=== PATIENT | male | born 1945 | race Caucasian/White ===

== ENCOUNTER → 2023-07-28 14:09 | Outpatient (REF) | payer MEDICARE, OTHER, SELFPAY | LOC: HWRAD 14:09 | PROVIDERS: ATTENDING PHYSICIAN Family Medicine | DX: R06.2 Wheezing (principal) | CPT/HCPCS: 71046 ==

== ENCOUNTER → 2023-08-11 07:21 | Outpatient (REF) | payer MEDICARE, OTHER, SELFPAY | LOC: HWRAD 07:21 | PROVIDERS: ATTENDING PHYSICIAN Family Medicine | DX: M79.89 Other specified soft tissue disorders (principal) | CPT/HCPCS: 76536 ==

== ENCOUNTER → 2023-09-22 06:36 | Outpatient (REF) | payer MEDICARE, OTHER, SELFPAY | LOC: RCS 06:36 | PROVIDERS: ATTENDING PHYSICIAN Internal Medicine Cardiovascular Disease; FAMILY PHYSICIAN Family Medicine | DX: R06.02 Shortness of breath (principal); I10 Essential (primary) hypertension | CPT/HCPCS: 78452; 93017; A9500 ==

== ENCOUNTER → 2023-10-09 | Outpatient (REF) | payer MEDICARE, OTHER, SELFPAY | LOC: DHSLP | PROVIDERS: ATTENDING PHYSICIAN Internal Medicine Critical Care Medicine; FAMILY PHYSICIAN Family Medicine | DX: G47.30 Sleep apnea, unspecified (principal); G47.00 Insomnia, unspecified; R06.83 Snoring | CPT/HCPCS: 95810 ==

== ENCOUNTER 2023-10-12 04:49 | Inpatient (IN) | payer MEDICARE, OTHER, SELFPAY ==
[2023-10-12] VITALS (17 sets, daily range): BP systolic 125–166; BP diastolic 72–108; PULSE 78; BMI 34.7; BMI 34.3
--- NOTE | 2023-10-12 01:01 | ED.GENMED ---
History of Present Illness
General
Chief Complaint: Change in Mental Status
Time Seen by Provider: 10/12/23 00:50
Travel History
Have you had any contact with someone who has COVID-19?: No
Do you have any symptoms of coronavirus? Fever > 100 degrees, chills, cough, shortness of breath, sore throat, loss of taste or smell, muscle aches, or headache?: No
History of Present Illness
History of Present Illness:
77yoM hx atrial fibrillation, HTN ,HLD, bilateral cataracts presenting with altered mental status. Family at bedside states patient had a sleep study done last night where patient did not sleep at all. states she picked patient up around 6am,
and he was asleep in bed by 7am. states patient slept for 2 hours and then ate breakfast as normal around 9am. states patient then slept on and off for the rest of the day. and daughter noticed patient was more confused than normal
such as attempted to sit on 's lap while getting into the car. notes patient has been coughing for the past days. Patient reports headache and right eye pain for the past 1 week, which daughter and states patient has not complained
about. Family states patient is currently being treated for sinus infection with doxycycline for the past 8-9 days. Otherwise patient denies any numbness, weakness, tingling, chest pain, shortness of breath, abdominal pain, or urinary symptoms.
Past History
Past History
ED Past Medical History: HTN and Hypercholesterolemia
ED Past Surgical History: Other (Hernia repair)
Social History
Tobacco: Non-smoker
Alcohol: None
Drug: None
Personal:
Living: with family
Employment: Employed
Family History
Family History: Hypertension
Phy Exam
Physical Exam
Physical Exam:
General: Alert, no acute distress
Head: NCAT
Eyes: clear conjunctiva. PERRLA. Difficulty following instructions to assess extraoccular movements
Neck: supple
Cardiac: regular rate and rhythm, no murmur
Lungs: clear to auscultation bilaterally. No wheezes, rales, or rhonchi. Speaking full unlabored sentences. No respiratory distress.
Abdomen: soft, nondistended nontender. No rebound or guarding.
MSK: no lower extremity edema bilaterally. No deformity
Skin: dry. Warm to touch
Neuro: Alert and oriented x3. CNII-XII intact with no focal deficits. 5/5 strength bilateral upper and lower extremities
Course
Orders/Labs/Results
Orders:
Orders
10/12/23 01:00
CT Head W/o Iv Contrast Urgent
Comment:
Reason For Exam: ams, headache
10/12/23 01:01
UA Reflex to Culture [Urinalysis Reflex To Culture] Urgent
CXR2 [CR Chest - 2 Views ] Urgent
Comment:
Reason For Exam: cough
10/12/23 01:10
CBC/With Diff [Complete Blood Count/With Diff] Urgent
CMP [Comprehensive Metabolic Panel] Urgent
Lactic Acid Urgent
Blood Culture Urgent
JENNIFER Source: Blood/Venous
Specimen Description:
10/12/23 01:24
0.9% Sodium Chloride 1000 ml [Nss] 1,000 ml IV BOLUS
10/12/23 02:10
Blood Culture Urgent
JENNIFER Source: Blood/Venous
Specimen Description:
Date Specimen was Collected: 10/12/23
Time Specimen was Collected: 02:09
10/12/23 02:28
Acetaminophen [Tylenol] 1,000 mg PO NOW STA
Ondansetron Injectable [Zofran] 4 mg IV NOW STA
Piperacillin/Tazo 4.5 Gram [Zosyn] 4.5 gram in 100 ml IV NOW
Vancomycin [Vancocin] 1,500 mg 0.9% Sodium Chloride [Nss] 20 ml 0.9% Sodium Chloride 250 ml [Nss] 250 ml IV NOW
Abnormal Lab Results
10/12/23
01:10
RDW 15.1 H %
(11.5-14.5)
Absolute Monos (auto) 0.8 H 10^3/uL
(0.1-0.6)
Lymphocytes % 17.8 L %
(20.5-51.1)
BUN 21 H mg/dl
(9-20)
Glucose 113 H mg/dl
(70-99)
10/12/23 01:10
10/12/23 01:10
Vital Signs
Initial and Last Documented VS:
Initial Vital Signs
Temp Pulse Resp BP Pulse Ox
99.2 F 88 28 158/108 97
10/12/23 00:29 10/12/23 00:29 10/12/23 00:29 10/12/23 00:29 10/12/23 00:29
Last Documented Vital Signs
Temp Pulse Resp BP Pulse Ox
100.1 F 88 18 158/80 96
10/12/23 01:08 10/12/23 02:43 10/12/23 02:43 10/12/23 02:43 10/12/23 02:43
MDM/Problems Addressed
MDM/Problems Addressed:
Patient presents to the Emergency Department with ___altered mental status
Number and Complexity of Problems Addressed at the Encounter
� Chronic conditions affecting care:
� Acute Exacerbation and/or Progression of Chronic Illness:
� Differential Diagnosis includes: sepsis, pneumonia, UTI, hypoglycemia, intracranial hemorrhage
Amount and/or Complexity of Data to be Reviewed and Analyzed
� I performed an independent evaluation of and my interpretation is:
EKG:
CT:
Xrays: CXR clear with no focal infiltrate or consolidation
Laboratory Studies: WBC, electrolytes, lactic acid within normal limits
Other:
� Review of other/old records reveals:
� Clinical information was obtained by an independent historian:
� Prescriptions/Medications Considered but not given:
� Further testing considered but not performed:
Risk of Complications and/or Morbidity or Mortality of Patient Management
� Social Determinants of health affecting care:
� Discussion with other providers (PCP, Hospitalists, Consultants, etc):
� Escalation of care including admission/observation vs risk of discharge considered: 77yoM hx atrial fibrillation, HTN, HLD presenting with altered mental status starting today. Patient has been on doxycycline for the past 8-9 days for a sinus
infection. Patient reports headache starting 1 week ago. Patient alert and oriented x3, but has difficulty following basic commands which is new. Low grade fever 100.1 rectally. Concern for infection. Due to patient being on doxycycline, ordered
vancomycin and zosyn for broad spectrum antibiotics. WBC, CMP, lactic acid within normal limits. CXR clear with no focal infiltrate or consolidation. CT head shows no intracranial hemorrhage, herniation or hydrocephalus. Chronic microangiopathic
changes, including periventricular and deep white matter hypoattenuation. No CT evidence of superimposed acute large vascular territory ischemia, although MRI is most sensitive for this diagnosis. No acute calvarial fracture. The paranasal sinuses
and mastoid air cells are clear where seen. As read by radiology. Discussed with hospitalist for admission.
*Critical Care Note
Total Time (30-74mins, 75-104mins- exclusive of procedures): Not Applicable
ED Attending Note
-
Portions of this chart may have been created with voice recognition software.� Occasional wrong word or��sound alike� substitutions may have occurred due to the inherent limitations of voice recognition software.
Discharge Plan
Departure
Patient Disposition: Admit
Date of Disposition: 10/12/23
Time of Disposition: 02:50
Presentation/result/management discussed w/ accepting MD/DO: Hospitalist
Discharge Problem:
Altered mental status
Prescriptions:
No Action
simvastatin 10 MG tablet
5 mg PO QPM
aspirin 81 MG tablet,delayed release (DR/EC)
81 mg PO DAILY
fenofibrate nanocrystallized [Tricor] 145 MG tablet
1 tab PO DAILY
CO Q-10
1 tab PO DAILY
Lisinopril/Hydrochlorothiazide
1 tab PO BID
Patient Comments:
pt states dose is lisinopril 20/10
Niacin Flush Free 500 mg Cap
1 tab PO DAILY
amoxicillin 500 MG capsule
500 mg PO TID Qty: 21 0RF
Referrals:
Gael Ochoa, DO [Family Provider] -
Interventions
Interventions:
*Risk Screen - Suicide Last Done: 10/12/23 00:29
*General Assessment Last Done: 10/12/23 00:29
*Neglect/Abuse Screening Last Done: 10/12/23 00:29
ED- Fall Risk Assessment Last Done: 10/12/23 01:14
ED- Pulmonary Assessment Last Done: 10/12/23 01:14
ED- Neurological Assessment Last Done: 10/12/23 01:14
ED- Cardiac Assessment Last Done: 10/12/23 01:14
Discharge Date and Time
Print Language: SYRIAN
[2023-10-12 01:21] LABS: % Basophils 0.7 % (0-2); % Eosinophils 2.3 % (0-6); % Immature Granulocytes 0.5 % (0-0.5); % Lymphocytes 17.8 % (20.5-51.1); % Monocytes 8.7 % (1.7-9.3); Absolute Basophils 0.1 10^3/uL (0-0.2); Absolute Eosinophils 0.2 10^3/uL (0-0.7); Absolute Lymphocytes 1.5 10^3/uL (1.2-3.4); Absolute Monocytes 0.8 10^3/uL (0.1-0.6); Hematocrit 47.4 % (39.0-52.0); Hemoglobin 16.6 g/dL (13.0-18.0); Mean Corpuscular Hgb 29.2 pg (27.0-31.0); Mean Corpuscular Volume 83.5 fL (80.0-94.0); Mean Platelet Volume 8.7 fL (7.4-10.4); Nucleated Red Blood Cells % 0 % (-); Platelet Count 153 10^3/uL (130-400); Red Blood Cell Count 5.68 10^6/uL (4.70-6.10); Red Cell Dist. Width 15.1 % (11.5-14.5); White Blood Cell Count 8.6 10^3/uL (4.8-10.8)
[2023-10-12 01:35] LABS: ALT (SGPT) 35 U/L (0-50); AST (SGOT) 27 U/L (17-59); Albumin 4.5 g/dl (3.5-5.0); Alkaline Phosphatase 76 U/L (38-126); Blood Urea Nitrogen 21 mg/dl (9-20); Calcium 9.8 mg/dl (8.4-10.2); Carbon Dioxide 28 mmol/L (22-30); Chloride 102 mmol/L (98-107); Estimated Creatinine Clearance 60 ml/min; Glucose 113 mg/dl (70-99); Sodium 139 mmol/L (135-145); Total Bilirubin 1.1 mg/dl (0.2-1.3); Total Protein 7.1 g/dl (6.3-8.2); eGFR > 60.00
[2023-10-12 01:40] LABS: Lactic Acid 1.4 mmol/L (0.7-2.0)
[2023-10-12] MEDS: NSS 1000 IV ×3 (02:08→15:23)
[2023-10-12] MEDS: ZOFRAN 4 MG IV (02:35)
[2023-10-12] MEDS: TYLENOL 1000 MG PO (02:35)
[2023-10-12] MEDS: ZOSYN 100 IV (02:51)
--- NOTE | 2023-10-12 04:19 | HPS.HSE ---
Family Physician
-
Family Physician: Gael Ochoa
Chief Complaint
-
Confusion / Change in Mental Status
History of Present Illness
Patient is a 77y M with PMH significant for hypertension and dyslipidemia who presents to ED for evaluation of confusion / disorientation. History obtained from patient and family at the bedside. Patient was noted to be confused / disoriented
at home today around 4 PM. He had difficulty following directions from family. Patient reports some sort of episode of confusion while he was showering, but family was not previously aware of this. He began to complain of headache, blurry vision,
shakes and chills and was brought to the ED for further evaluation.
In the ED, his initial rectal temp was 100.1.
Patient denies any focal complaints such as cough, dyspnea, abdominal pain, N/V/D or urinary complaints.
He has history of chronic 'sinus disease' which manifests as post-nasal drip. He has been on abx off and on many times for this - with temporary improvement in his symptoms.
He is currently on day #9/10 of doxycycline for this issue. This is a new abx for him.
No other new medications.
Patient had an overnight sleep study on Friday evening and slept very poorly that night. He slept for much of the day on Friday but then seemed fairly normal and Friday.
His gave him 1/2 of a lorazepam this evening in the hopes it would help him get some rest. He takes this occasionally for sleep - but not every day.
He was exhibiting confusion / disorientation prior to receiving this medicine.
Medical History
Past Medical History
Past Medical History: Reports Other
Additional Past Medical History:
Paroxysmal Atrial Fibrillation
CKD III
Hypertension
Prostate Cancer s/p XRT
LATANYA on CPAP
Obesity
Gout
Psoriasis
Past Surgical History: Reports Other
Additional Past Surgical History:
Umbilical Herniorrhaphy
Cataracts
T&A
Social History
Tobacco: Non-smoker
Alcohol: None
Drug: None
Personal:
Living: With Family
Family History
Family History: Not pertinent
Allergies / Home Medications
Allergies reflects when Allergies were last updated in [facility].
Home Medications with original date entered in [facility]
Allergy/Medication List:
Allergies
Allergy/AdvReac Type Severity Reaction Status Date / Time
Penicillins Allergy Unknown Verified 10/12/23 03:46
Sulfa (Sulfonamide Allergy Unknown Verified 10/12/23 03:46
Antibiotics)
Hay Fever Allergy sneezing,itchy Uncoded 10/12/23 03:46
eyes
Home Medications
aspirin 81 mg tablet,delayed release 81 mg PO DAILY 03/23/12
CoQ-10 200 mg PO DAILY 10/12/23
[place] 3 1,000 mg PO QID 10/12/23
Symbicort 1 dose PO DAILY 10/12/23
Zetia 10 mg PO DAILY 10/12/23
febuxostat 40 mg tablet 40 mg PO DAILY 10/12/23
hydrochlorothiazide 12.5 mg tablet 12.5 mg PO DAILY 10/12/23
lorazepam 1 mg PO DAILY 10/12/23
losartan 50 mg PO DAILY 10/12/23
pravastatin 20 mg PO DAILY 10/12/23
Review of Systems
-
History Source: Patient and Family
A 12 point ROS was completed and negative except as noted: Yes
Constitutional: Reports Fever, Fatigue and Chills
EENT: Denies Sore Throat
Respiratory: Denies Cough or Trouble Breathing
Cardiac: Denies Chest Pain or Palpitations
Abdomen/GI: Denies Abdominal Pain, Nausea, Vomiting or Diarrhea
: Denies Dysuria, Frequency or Flank Pain
Musculoskeletal: Denies Joint Pain or Edema
Neurological: Denies Dizzy or Headache
Psych: Reports Other (Confusion); Denies Depression or Anxiety
Physical Exam
Vital Signs
Vital Signs
Temp Pulse Resp BP Pulse Ox
100.1 F 88 18 158/80 96
10/12/23 01:08 10/12/23 02:43 10/12/23 02:43 10/12/23 02:43 10/12/23 02:43
Physical Exam
General: Other (77y M in no acute distress.)
HEENT: Moist mucous membranes and PERRLA
Respiratory: Clear; No Wheezes, Rales or Rhonchi
Cardiac: S1/S2, Regular Rhythm and Murmur (II/ MALLORIE)
GI: Soft, Non Tender, Non Distended and Normal Bowel Sounds
Musculoskeletal: No Clubbing, No Cyanosis and No Edema
Neuro: Awake, Alert, Oriented and Nonfocal/grossly intact
Psych: Confused; No Anxious or Depressed
Laboratory Results
-
10/12/23 01:10
10/12/23 01:10
Laboratory Results
Lactic Acid 1.4 mmol/L (0.7-2.0) 10/12/23 01:10
Total Bilirubin 1.1 mg/dl (0.2-1.3) 10/12/23 01:10
AST 27 U/L (17-59) 10/12/23 01:10
ALT 35 U/L (0-50) 10/12/23 01:10
Alkaline Phosphatase 76 U/L (38-126) 10/12/23 01:10
Impression/Plan
-
A/P: Patient is a 77y M with PMH significant for A-Fib, HTN and LATANYA who presents to ED for evaluation of confusion / disorientation.
Confusion / Disorientation
- Admit for further evaluation and treatment.
- No evident etiology for his confusion - though infection and acute TME seems most likley.
- Other possibilities include CVA (A-Fib not on OAC), med effect (doxycycline), etc.
- Follow for any new / worsening symptoms.
- CT head in the ED with no acute abnormalities.
- Check MR brain in the AM.
Fever
- Temp in the ED to 100.5 after Tylenol. Rigors / chills at home.
- No focal symptoms and work-up thus far in the ED is unremarkable.
- Urine is pending.
- Received initial doses of Vanco / Zosyn.
- Reviewed PCN allergy with patient / - apparently has taken amoxicillin on multiple prior occasions with no issues.
- PCN 'allergy' was from childhood records - no adverse effects in his adult life.
- Continue IV abx with ceftriaxone for now pending culture data, focal symptoms, etc.
- Supportive care with antipyretics, IVFs, etc.
- Follow for clinical improvement.
- Will stop doxycycline. Note that CT scan shows no evidence of significant sinus disease.
Paroxysmal Atrial Fibrillation
- Stable. Patient on no medications for rate or rhythm control.
- Not on OAC for stroke risk reduction.
- Monitor on tele for any evidence of A-Fib.
- Stroke eval as noted above.
- Adjust meds if needed.
Benign Hypertension
- Stable. Continue usual meds with holding parameters.
CKD III
- Stable. Renal function at / near known baseline.
- Follow for any changes.
LATANYA on CPAP
- Stable. Continue usual CPAP.
Cognitive Impairment
- Patient was noted at recent PCP visit to have mild degree of cognitive impairment.
- Current symptoms may reflect decompensation in this due to infection / acute illness.
- Follow for improvement.
DVT Prophylaxis: SCDs
Code Status: Full
[2023-10-12 04:40] LABS: Urine Albumin Negative (Neg - Trace); Urine Bilirubin Negative (Negative); Urine Character Clear (Clear); Urine Color Yellow; Urine Glucose Negative (Negative); Urine Ketone Negative (Negative); Urine Leukocyte Negative (Negative); Urine Nitrite Negative (Negative); Urine Occult Blood Negative (Negative); Urine Specific Gravity 1.015 (<1.030); Urine Urobilinogen Negative (Neg - 1+); Urine pH 6.5 (5.0-9.0)
[2023-10-12] MEDS: VANCOCIN 300 MG IV (04:54)
[2023-10-12] MEDS: VANCOCIN 300 ML IV (04:54)
[2023-10-12 07:34] LABS: TSH Reflex To Free T4 0.93 uIU/ml (0.47-4.68)
[2023-10-12 08:10] LABS: Folate 16.2 ng/ml (2.76-20); Vitamin B12 168 pg/ml (239-931)
--- NOTE | 2023-10-12 08:12 | W.PN.HOSP.TC ---
Today's Communication/Plan
-
MRI
continue Ceftriaxone
Neuro consult
follow labs
PT/OT
Assessment / Plan
Assessment / Plan
A/P: Patient is a 77y M with PMH significant for A-Fib, HTN and LATANYA who presents to ED for evaluation of confusion / disorientation.
Confusion / Disorientation
- Admit for further evaluation and treatment.
- No evident etiology for his confusion - though infection and acute TME seems most likely.
- Other possibilities include CVA (A-Fib not on OAC), med effect (doxycycline), etc.
- Follow for any new / worsening symptoms.
- CT head in the ED with no focal abnormalities.
my read: mild atrophic changes
- Check MR brain in the AM.
Fever
- Temp in the ED to 100.5 after Tylenol. Rigors / chills at home.
- No focal symptoms and work-up thus far in the ED is unremarkable.
- Urine normal
- Received initial doses of Vanco / Zosyn.
- Reviewed PCN allergy with patient / - apparently has taken amoxicillin on multiple prior occasions with no issues.
- PCN 'allergy' was from childhood records - no adverse effects in his adult life.
- Continue IV abx with ceftriaxone for now pending culture data, focal symptoms, etc.
- Supportive care with antipyretics, IVFs, etc.
- Follow for clinical improvement.
- Will stop doxycycline. Note that CT scan shows no evidence of significant sinus disease.
CXR - [facility] (my read)
Paroxysmal Atrial Fibrillation
- Stable. Patient on no medications for rate or rhythm control.
- Not on OAC for stroke risk reduction.
- Monitor on tele for any evidence of A-Fib.
- Stroke eval as noted above.
- Adjust meds if needed.
Benign Hypertension
- Stable. Continue usual meds with holding parameters.
CKD III
- Stable. Renal function at / near known baseline.
- Follow for any changes.
LATANYA on CPAP
- Stable. Continue usual CPAP.
Cognitive Impairment
- Patient was noted at recent PCP visit to have mild degree of cognitive impairment.
- Current symptoms may reflect decompensation in this due to infection / acute illness.
- Follow for improvement.
DVT Prophylaxis: SCDs
Code Status: Full
Anticipated Discharge: > 48 hours
Subjective/Interval History
-
Date of Service: October 12, 2023
Awake, alert, cognitive fxn obviously diminished
Objective Data
-
Labs:
Laboratory Results
10/12/23
01:10
WBC 8.6
Hgb 16.6
Hct 47.4
Plt Count 153
Sodium 139
Potassium 4.0
Chloride 102
Carbon Dioxide 28
BUN 21 H
Creatinine 1.2
Glucose 113 H
Calcium 9.8
Total Bilirubin 1.1
AST 27
ALT 35
Alkaline Phosphatase 76
Vital Signs:
Vital Signs
Temp Pulse Resp BP Pulse Ox
100.5 F H 70 20 144/86 94
10/12/23 04:59 10/12/23 06:30 10/12/23 04:59 10/12/23 04:59 10/12/23 04:59
I&O
10/11/23 10/12/23 10/13/23
06:59 06:59 06:59
Intake Total 1440 / 1440
Output Total 400 / 400
Balance 1040 / 1040
Review of Systems
-
History Source: Patient and Coordinated Provider
Constitutional: Reports Fever (Temp 100.5)
EENT: Reports No Symptoms Reported
Respiratory: Reports No Symptoms; Denies Cough, Hemoptysis or Trouble Breathing
Cardiac: Reports No Symptoms; Denies Chest Pain
Abdomen/GI: Reports No Symptoms
Genitourinary: Reports No Symptoms; Denies Dysuria or Frequency
Musculoskeletal: Reports No Symptoms
Neuro: Denies Dizzy, Weakness or Numbness
Physical Exam
-
General: Well Developed, Well Nourished, No Apparent Distress and Obese; Negative Respiratory Distress
HEENT: Normocephalic, Atraumatic, Moist Mucous Membranes and Neck Non Tender (no nuchal rigidity)
Respiratory: Clear to Auscultation; Negative Wheezes, Rales or Rhonchi
Cardiac: Regular Rhythm and S1/S2
GI: Nontender and Nondistended
Musculoskeletal: No Clubbing, No Cyanosis and No Edema
Neuro: Awake, Alert and AO x 3 (able to tell me type of work he did, where was located, unable to name president, obvious impaired cognition)
Psych: Calm; Negative Agitated
[2023-10-12] MEDS: ASPIR LOW (ENTERIC COATED) 81 MG PO (08:27)
[2023-10-12] MEDS: PRAVACHOL 20 MG PO (08:28)
[2023-10-12] MEDS: COZAAR 50 MG PO (08:30)
[2023-10-12] MEDS: ULORIC 40 MG PO (08:30)
[2023-10-12] MEDS: ZETIA 10 MG PO (08:31)
[2023-10-12] MEDS: ORETIC 12.5 MG PO (08:31)
[2023-10-12] MEDS: ROCEPHIN 1000 MG IV (08:33)
[2023-10-12] MEDS: STERILE WATER FOR INJECTION 10 ML IV (08:33)
--- NOTE | 2023-10-12 09:27 | CON.NEURO ---
Neuro Assessment/Plan
Assessment
IMPRESSIONS/RECOMMENDATIONS:
Abrupt change in mental status in a patient with a prior diagnosis of mild cognitive impairment and recent polysomnography as well as recent treatment for 'sinus infection.'
Differential diagnosis includes toxic metabolic encephalopathy as well as stroke due to the patient's prior history of atrial fibrillation
Plan
Follow MRI of brain results
check blood work for metabolic challenges
outpatient psychological evaluation for anxiety
start B12 1000 mcg daily
continue CPAP
consider additional neurovascular imaging based on MRI of brain results
Will continue to follow as outpatient. Thank you.
Consultation
Order
Date of Consultation: 10/12/23
Requesting Provider: Hospitalist
Reason for Consult: Change in mental status
Subjective/Objective
Subjective Data
Date of Service: October 12, 2023
Adapted from my outpatient note 09/2022:
Memory Loss:�
������ History from patient and significant other ()
�������Since last visit:
�������less anxiety than previously
�������no change to memory
�������stopped Trazodone
�������underwent NeuroTrax testing and blood work
�������Prior evaluation: presentation to PCP
�������Previous testing: blood work, CT head, NeuroTrax testing (08/2020, 105%)
�������Prior medication(s): none
�������Side-effects with medications: N/A
�������Previous treatment(s): none
�������Frequency: daily
�������Intensity: N/A
�������Duration: since 09/2018
�������Duration of symptom: intermittent
�������Etiology: unclear
�������Associated symptom(s): short-term memory, name recall
�������Improving factors: stopping Trazodone
�������Worsening factors: unclear to patient
�������Unchanged by factors: unclear to patient
�������Severity: significant
�������-------
�������Began (prior to initial evaluation in this office):
�������Difficulty with short-term memory 09/2018, no difficulty with long-term memory
�������had an episode of severe headache
�������anxiety started 2019, taking Lorazepam daily.
Excessive awakenings:�
������ Starting 2014
�������Awakenings from sleep: once per night
�������Able to return to sleep immediately
�������Taking OTC med for sleep 3x/week
�������BT: (variable) 23:00
�������WT: 04:00-06:00
�������Fall asleep: 4-5x/ week
�������After awakening, uses iPad for 30 minutes then returns to sleep 3x/week
�������OTC meds used to treat, also Suvorexant
�������No prior testing of this issue
�������prior snoring according to oneal.
Patient is a limited history provider. History mostly from patient's and medical records with assistance from medical claims representative
Patient presented to this hospital's emergency department with a decline in mental status. The patient was described as undergoing a diagnostic polysomnogram which caused sleep deprivation. The patient then performed unusual activities such as
attempting to sit in his 's lap while getting into the car. Disorientation was specifically noted at approximately 1600 on October 11, 2023.
Of note is that the patient has been described as having recurrent headaches approximately 8 days prior to presentation to this hospital's emergency department.
Objective Data
Vital Signs
Temp Pulse Resp BP Pulse Ox
37.1 C 87 18 139/79 94
10/12/23 08:26 10/12/23 08:30 10/12/23 08:26 10/12/23 08:30 10/12/23 08:26
Lab Results
10/12/23 01:10
10/12/23 01:10
Sodium 139 mmol/L (135-145) 10/12/23 01:10
Potassium 4.0 mmol/L (3.5-5.1) 10/12/23 01:10
BUN 21 mg/dl (9-20) H 10/12/23 01:10
Glucose 113 mg/dl (70-99) H 10/12/23 01:10
Calcium 9.8 mg/dl (8.4-10.2) 10/12/23 01:10
Vitamin B12 168 pg/ml (239-931) L 10/12/23 06:37
Patient Allergies
Sulfa (Sulfonamide Antibiotics) Allergy (Verified 10/12/23 03:46)
Unknown
Hay Fever Allergy (Uncoded 10/12/23 03:46)
sneezing,itchy eyes
Review of Systems
-
History Source: Patient and Family
All other systems: Reviewed and negative
EENT: Negative Decreased Vision or Swallowing Difficulty
Respiratory: Negative Trouble Breathing
Cardiac: Negative Chest Pain
Abdomen/GI: Negative Incontinence of Stool
Genitourinary: Negative Incontinence
Musculoskeletal: Negative Back Pain or Neck Pain
Neuro: Negative Dizzy or Headache
Physical Exam
-
General: No Apparent Distress and Appears Stated Age
Eyes: OU Absent Papilledema, Round OU, [place] Conjunctivae and No Ptosis
HEENT: Anicteric and Moist Mucous Membranes
Neck: Full Range of Motion
Respiratory: No Dyspnea
Cardiac: No JVD
GI: Non-distended and Other (obese)
Skin: Unremarkable
Extremities: No Clubbing, No Cyanosis and No Edema
Psych: Negative Intact Judgement/Insight
Extended Neurological Exam
Mood & Affect: Anxious
Attention Span & Concentration: Awake, Alert, Interactive and Mild Difficulty with 2 Step Request
Memory: Able to Recall (location, )
Tremor: Hand Tremor Absent and Head Tremor Absent
Involuntary Movement: None
Speech: Quality Unremarkable and Quantity Unremarkable
Cranial Nerve II: Left Eye: Pupillary Reactivity Unremarkable, Pupillary Size Unremarkable and Visual O[place]peza Intact
Cranial Nerve II: Right Eye: Pupillary Reactivity Unremarkable, Pupillary Size Unremarkable and Visual [place] Intact
Cranial Nerves III, IV, : Extraocular Movement: Extraocular Movement Full in all Directions
Cranial Nerve VII: Facial Symmetry: Normal Facial Symmetry
Cranial Nerve VIII: Hearing: Unremarkable Hearing to Normal Conversational Volume
Cranial Nerves IX, X: Palate Movement: Palate Elevation Symmetric
Cranial Nerve XI: Shoulder Shrug: Unremarkable
Cranial Nerve XII: Tongue Protusion: Midline
Muscle Strength, Overall: Full Throughout
Muscle Bulk & Tone: Bulk Unremarkable and Tone Unremarkable
Pronator Drift: No Drift in Upper Extremities
Deep Tendon Reflexes: Unremarkable Throughout
Touch Sensation: Unremarkable
Coordination: [id number] Testing Unremarkable
Babinski Sign: Absent Bilaterally
Data Reviewed
-
CT Head: Report Reviewed
Labs: Report Reviewed
Reviewed with: Physician, Patient and Family
Old Records: Summarized
Medications
-
Active Medications
Generic Name Dose Route Start Last Admin
Trade Name Freq PRN Reason Stop Dose Admin
Acetaminophen 650 mg 10/12/23 06:22
Acetaminophen 325 Mg Tablet PO 11/09/23 06:21
Q4HPRN PRN
Mild Pain / Temp > 101
Albuterol Sulfate 2.5 mg 10/12/23 06:22
Albuterol Nebs 2.5 Mg/3 Ml Ampul INH
R Q4HPRN PRN
SOB
Protocol
Aspirin 81 mg 10/12/23 08:00 10/12/23 08:27
Aspirin 81 Mg (Enteric Coated) Tablet PO 11/09/23 07:59 81 mg
DAILY JOSEFINA Administration
Ceftriaxone Sodium 1,000 mg 10/12/23 08:00 10/12/23 08:33
Ceftriaxone 1000 Mg / 10 Ml Vial IV 1,000 mg
Q24H JOSEFINA Administration
Ezetimibe 10 mg 10/12/23 08:00 10/12/23 08:31
Ezetimibe (Zetia) 10 Mg Tablet PO 11/09/23 07:59 10 mg
DAILY JOSEFINA Administration
Enoxaparin Sodium 40 mg 10/12/23 18:00
Enoxaparin Sodium 40 Mg/0.4 Ml Syringe SC 11/09/23 17:59
QPM JOSEFINA
Febuxostat 40 mg 10/12/23 08:00 10/12/23 08:30
Febuxostat (Non-Form) 40 Mg Tablet PO 11/09/23 07:59 40 mg
DAILY JOSEFINA Administration
Hydrochlorothiazide 12.5 mg 10/12/23 08:00 10/12/23 08:31
Hydrochlorothiazide 12.5 Mg Tablet PO 11/09/23 07:59 12.5 mg
DAILY JOSEFINA Administration
Sodium Chloride 1,000 mls @ 100 mls/hr 10/12/23 06:22 10/12/23 06:45
Nss IV 1,000 mls
.Q10H JOSEFINA Administration
Losartan Potassium 50 mg 10/12/23 08:00 10/12/23 08:30
Losartan 50 Mg Tablet PO 11/09/23 07:59 50 mg
DAILY JOSEFINA Administration
Ondansetron HCl 4 mg 10/12/23 06:22
Ondansetron 4 Mg/2 Ml Vial IV 11/09/23 06:21
Q6HPRN PRN
nausea and vomiting
Pravastatin Sodium 20 mg 10/12/23 08:00 10/12/23 08:28
Pravastatin 20 Mg Tablet PO 11/09/23 07:59 20 mg
DAILY JOSEFINA Administration
Sodium Chloride 0 flush 10/12/23 04:00
Sodium Chloride 0.9% (Flush) Syringe IV 11/09/23 03:59
PER PROTOCOL JOSEFINA
Sterile Water 10 ml 10/12/23 08:00 10/12/23 08:33
Sterile Water For Injection 10 Ml Vial IV 11/09/23 07:59 10 ml
DAILY JOSEFINA Administration
Home Medications
�Medication �Instructions �Recorded
aspirin 81 mg tablet,delayed 81 mg PO DAILY 03/23/12
release
CoQ-10 200 mg PO DAILY 10/12/23
[place] 3 1,000 mg PO QID 10/12/23
Symbicort 1 dose PO DAILY 10/12/23
Zetia 10 mg PO DAILY 10/12/23
febuxostat 40 mg tablet 40 mg PO DAILY 10/12/23
hydrochlorothiazide 12.5 mg tablet 12.5 mg PO DAILY 10/12/23
lorazepam 1 mg PO DAILY 10/12/23
losartan 50 mg PO DAILY 10/12/23
pravastatin 20 mg PO DAILY 10/12/23
Past History
Past History
ED Past Medical History: Arrthythmia (Atrial fibrillation), Cancer (Prostate), HTN, Hypercholesterolemia and Other (Mild cognitive impairment, PHU positive, high triglycerides, low vitamin D, fatty liver, erectile dysfunction, gout, low
testosterone, sleep apnea); Negative Renal failure (CKD stage III)
ED Past Surgical History: Other (Hernia repair, bilateral cataract extractions)
Social History
Tobacco: Non-smoker
Alcohol: None
Drug: None
Personal:
Living: with family
Employment: Employed
Family History
Family History: Hypertension
[2023-10-12 09:45] LABS: COVID-19 Antigen Negative (Negative)
[2023-10-12] MEDS: VITAMIN B-12 1000 MCG PO (12:41)
[2023-10-12] MEDS: ATIVAN 1 MG PO (13:39)
[2023-10-12] MEDS: LOVENOX 40 MG SC (17:25)
[2023-10-13] MEDS: NSS 1000 IV (02:17)
[2023-10-13 03:10] VITALS: BP 163/82
[2023-10-13 06:00] VITALS: BMI 34.2
[2023-10-13 06:09] LABS: % Basophils 0.8 % (0-2); % Eosinophils 2.1 % (0-6); % Immature Granulocytes 0.3 % (0-0.5); % Lymphocytes 18.7 % (20.5-51.1); % Monocytes 9.5 % (1.7-9.3); % Neutrophils 68.6 % (42.2-75.2); Absolute Basophils 0.1 10^3/uL (0-0.2); Absolute Eosinophils 0.2 10^3/uL (0-0.7); Absolute Lymphocytes 1.3 10^3/uL (1.2-3.4); Absolute Monocytes 0.7 10^3/uL (0.1-0.6); Absolute Neutrophils 4.9 10^3/uL (1.4-6.5); Hematocrit 47.4 % (39.0-52.0); Mean Corp Hgb Conc. 33.8 g/dL (33.0-37.0); Mean Corpuscular Hgb 29.2 pg (27.0-31.0); Mean Corpuscular Volume 86.5 fL (80.0-94.0); Mean Platelet Volume 8.8 fL (7.4-10.4); Nucleated Red Blood Cells % 0 % (-); Platelet Count 142 10^3/uL (130-400); Red Blood Cell Count 5.48 10^6/uL (4.70-6.10); Red Cell Dist. Width 14.7 % (11.5-14.5); White Blood Cell Count 7.2 10^3/uL (4.8-10.8)
[2023-10-13 06:21] LABS: ALT (SGPT) 29 U/L (0-50); AST (SGOT) 27 U/L (17-59); Albumin 3.9 g/dl (3.5-5.0); Alkaline Phosphatase 60 U/L (38-126); Blood Urea Nitrogen 15 mg/dl (9-20); Calcium 9.4 mg/dl (8.4-10.2); Carbon Dioxide 26 mmol/L (22-30); Chloride 105 mmol/L (98-107); Direct Bilirubin 0.3 mg/dl (0.0-0.4); Estimated Creatinine Clearance 65 ml/min; Glucose 95 mg/dl (70-99); Potassium 3.8 mmol/L (3.5-5.1); Sodium 140 mmol/L (135-145); Total Bilirubin 1.2 mg/dl (0.2-1.3); Total Protein 6.4 g/dl (6.3-8.2); eGFR > 60.00
[2023-10-13 06:44] LABS: C-Reactive Protein < 5.00 mg/L (0.0-10.00)
[2023-10-13 07:38] VITALS: BP 170/89
--- NOTE | 2023-10-13 08:22 | W.PN.NEURO.1 ---
Addendum entered and electronically signed by Alvarado Peña MD 10/13/23 14:38:
I saw and evaluated the patient I reviewed the note by Gretta Nielsen agree with the findings the following comments:
77-year-old male with a past history of anxiety, sleep apnea mild cognitive impairment presenting the hospital with confusion. He did have low-grade temperature to 100.5 here.
No acute events overnight patient had been given Ativan shortly before the time of my evaluation of him. Patient had been experiencing some small degree of increased baseline level of anxiety but no recent severe stressors. No significant alcohol
or recreational drug use.
Neurologic examination shows mild amount of drowsiness attributable to lorazepam, otherwise there is no aphasia and he answers basic questions and obeys commands, no deficits of cranial nerves and motor function no hyperreflexia.
MRI brain reviewed which does not show any significant small vessel ischemic disease and no acute or chronic strokes no masses or edema.
Low vitamin B12 noted
Assessment: Best estimation is that combination of baseline mild cognitive impairment, vitamin B12 deficiency and possibly a mild viral illness contributed to increased confusion. Patient has not had any leukocytosis headache meningismus nausea or
vomiting that suggest a SOCIAL INSURANCE ANALYST infection. He has not had any history of gait issues neck pain or hyperreflexia or weakness to suggest that he has any aspect of cervical myelopathy. MRI brain does not support a vascular type mild cognitive impairment
Recommendations
-Vitamin B12 p.o. daily
-Continue his home aspirin
-Discussed consideration for the future of memory stabilizing medication such as Aricept or Namenda
-Outpatient neurology and neuropsychological evaluations
-Monitor for recurrent fever
-Do not feel he would require spinal tap
-History and lack of lesions on brain MRI I feel make EEG low yield
Original Note:
Today's Communication / Plan
-
.
Neuro Assessment/Plan
Assessment
IMPRESSIONS/RECOMMENDATIONS:
Abrupt change in mental status in a patient with a prior diagnosis of mild cognitive impairment, severe anxiety, and recent polysomnography as well as recent treatment for 'sinus infection.'
Differential diagnosis includes toxic metabolic encephalopathy of unclear etiology, vitamin B12 deficiency.
MRI brain is negative for stroke.
-MRI brain 10/13/23: No MRI evidence for acute infarct or intracranial hemorrhage. Mild white matter leukoaraiosis in the frontal and parietal lobes. Mild diffuse cerebral and cerebellar volume loss. Severe discogenic degenerative disease at C3/C4,
C4/C5, and C5/C6. Moderate-sized disc herniation at C3/C4 causing moderate spinal cord compression and central canal stenosis.
Plan
-Continue aspirin 81mg daily.
-Needs outpatient psychological evaluation prior to considering starting a memory stabilization medication.
-Start B12 1000 mcg daily. B12 level is 168.
-Continue CPAP
-Infectious workup per primary team.
-Can follow-up with Ortho as an outpatient regarding cervical spine abnormalities.
-Patient should follow-up with Neurology as an outpatient, may see the LEAD CYTOGENETIC TECHNOLOGIST or one of the physicians.
Subjective/Objective
Subjective Data
Date of Service: October 13, 2023
No acute events overnight. Patient's family reports that he seems about at his cognitive baseline today and the patient denies any headache.
Objective Data
Vital Signs
Temp Pulse Resp BP Pulse Ox
98.4 F 81 18 170/89 94
10/13/23 07:38 10/13/23 07:38 10/13/23 07:38 10/13/23 07:38 10/13/23 07:38
Lab Results
10/13/23 04:55
10/13/23 04:55
Sodium 140 mmol/L (135-145) 10/13/23 04:55
Potassium 3.8 mmol/L (3.5-5.1) 10/13/23 04:55
BUN 15 mg/dl (9-20) 10/13/23 04:55
Glucose 95 mg/dl (70-99) 10/13/23 04:55
Calcium 9.4 mg/dl (8.4-10.2) 10/13/23 04:55
Vitamin B12 168 pg/ml (239-931) L 10/12/23 06:37
Patient Allergies
Sulfa (Sulfonamide Antibiotics) Allergy (Verified 10/12/23 03:46)
Unknown
Hay Fever Allergy (Uncoded 10/12/23 03:46)
sneezing,itchy eyes
Review of Systems
-
History Source: Patient
EENT: Negative Blurry Vision, Decreased Vision or Swallowing Difficulty
Respiratory: Negative Cough or Trouble Breathing
Cardiac: Negative Chest Pain or Palpitations
Abdomen/GI: Negative Nausea
Neuro: Negative Dizzy, Headache, Weakness, Numbness, Ataxia, Tremors or Speech Problem
Physical Exam
-
General: No Apparent Distress
Eyes: No Ptosis and PERRLA
HEENT: Normocephalic and Atraumatic
Neck: Full Range of Motion
Respiratory: No Dyspnea
GI: Non-distended
Extremities: No Clubbing, No Cyanosis and No Edema
Psych: Unremarkable
Extended Neurological Exam
Mood & Affect: Mood Unremarkable and Affect Unremarkable
Attention Span & Concentration: Awake, Alert and Interactive
Memory: Unremarkable (AAOx3, poor historian)
Tremor: Hand Tremor Absent and Head Tremor Absent
Involuntary Movement: None
Speech: Quality Unremarkable, Quantity Unremarkable and Rate of Production Unremarkable
Cranial Nerve II: Left Eye: Pupillary Reactivity Unremarkable, Pupillary Size Unremarkable and Visual Oropeza Intact
Cranial Nerve II: Right Eye: Pupillary Reactivity Unremarkable, Pupillary Size Unremarkable and Visual [place]pe[place] Intact
Cranial Nerves III, IV, : Extraocular Movement: Extraocular Movement Full in all Directions
Cranial Nerve V: Facial Sensation: Intact to Light Touch
Cranial Nerve VII: Facial Symmetry: Normal Facial Symmetry
Cranial Nerve VIII: Hearing: Grossly Reduced
Cranial Nerves IX, X: Palate Movement: Palate Elevation Symmetric
Cranial Nerve XI: Shoulder Shrug: Unremarkable
Cranial Nerve XII: Tongue Protusion: Midline
Muscle Strength, Overall: Full Throughout
Muscle Bulk & Tone: Bulk Unremarkable and Tone Unremarkable
Pronator Drift: No Drift in Upper Extremities and No Drift in Lower Extremities
Touch Sensation: Double Simultaneous Stimulation Unremarkable
Babinski Sign: Absent Bilaterally
Data Reviewed
-
CT Head: Report Reviewed and Image Reviewed
Labs: Report Reviewed
Reviewed with: Physician and Patient
Medications
-
Active Medications
Generic Name Dose Route Start Last Admin
Trade Name Freq PRN Reason Stop Dose Admin
Acetaminophen 650 mg 10/12/23 06:22
Acetaminophen 325 Mg Tablet PO 11/09/23 06:21
Q4HPRN PRN
Mild Pain / Temp > 101
Albuterol Sulfate 2.5 mg 10/12/23 06:22
Albuterol Nebs 2.5 Mg/3 Ml Ampul INH
R Q4HPRN PRN
SOB
Protocol
Aspirin 81 mg 10/12/23 08:00 10/13/23 09:09
Aspirin 81 Mg (Enteric Coated) Tablet PO 11/09/23 07:59 81 mg
DAILY JOSEFINA Administration
Ceftriaxone Sodium 1,000 mg 10/12/23 08:00 10/13/23 09:09
Ceftriaxone 1000 Mg / 10 Ml Vial IV 1,000 mg
Q24H JOSEFINA Administration
Cyanocobalamin 1,000 mcg 10/12/23 13:00 10/13/23 09:09
Cyanocobalamin 1,000 Mcg Tablet PO 11/09/23 12:59 1,000 mcg
DAILY JOSEFINA Administration
Ezetimibe 10 mg 10/12/23 08:00 10/13/23 09:09
Ezetimibe (Zetia) 10 Mg Tablet PO 11/09/23 07:59 10 mg
DAILY JOSEFINA Administration
Enoxaparin Sodium 40 mg 10/12/23 18:00 10/12/23 17:25
Enoxaparin Sodium 40 Mg/0.4 Ml Syringe SC 11/09/23 17:59 40 mg
QPM JOSEFINA Administration
Febuxostat 40 mg 10/12/23 08:00 10/13/23 09:09
Febuxostat (Non-Form) 40 Mg Tablet PO 11/09/23 07:59 40 mg
DAILY JOSEFINA Administration
Hydrochlorothiazide 12.5 mg 10/12/23 08:00 10/13/23 09:09
Hydrochlorothiazide 12.5 Mg Tablet PO 11/09/23 07:59 12.5 mg
DAILY JOSEFINA Administration
Sodium Chloride 1,000 mls @ 100 mls/hr 10/12/23 06:22 10/13/23 02:17
Nss IV 1,000 mls
.Q10H JOSEFINA Administration
Losartan Potassium 50 mg 10/12/23 08:00 10/13/23 09:09
Losartan 50 Mg Tablet PO 11/09/23 07:59 50 mg
DAILY JOSEFINA Administration
Ondansetron HCl 4 mg 10/12/23 06:22
Ondansetron 4 Mg/2 Ml Vial IV 11/09/23 06:21
Q6HPRN PRN
nausea and vomiting
Pravastatin Sodium 20 mg 10/12/23 08:00 10/13/23 09:09
Pravastatin 20 Mg Tablet PO 11/09/23 07:59 20 mg
DAILY JOSEFINA Administration
Sodium Chloride 0 flush 10/12/23 04:00
Sodium Chloride 0.9% (Flush) Syringe IV 11/09/23 03:59
PER PROTOCOL JOSEFINA
Sterile Water 10 ml 10/12/23 08:00 10/13/23 09:09
Sterile Water For Injection 10 Ml Vial IV 11/09/23 07:59 10 ml
DAILY JOSEFINA Administration
Home Medications
�Medication �Instructions �Recorded
aspirin 81 mg tablet,delayed 81 mg PO QPM Blood Clot 03/23/12
release Prevention/Tx
Symbicort 1 puff inhalation R DAILY PRN sob 10/12/23
coenzyme Q10 200 mg capsule (Co 200 mg PO DAILY Supplement 10/12/23
Q-10)
ezetimibe 10 mg tablet 10 mg PO QPM High Cholesterol 10/12/23
febuxostat 40 mg tablet 40 mg PO DAILY Gout 10/12/23
hydrochlorothiazide 12.5 mg tablet 12.5 mg PO DAILY Blood Pressure 10/12/23
lorazepam 1 mg tablet 1 mg PO DAILY PRN anxiety 10/12/23
losartan 50 mg tablet 50 mg PO DAILY Blood Pressure 10/12/23
omega-3 acid ethyl esters 1 gram 2 g PO BID Supplement 10/12/23
capsule
pravastatin 40 mg tablet 20 mg PO QPM High Cholesterol 10/12/23
[2023-10-13] MEDS: PRAVACHOL 20 MG PO (09:09)
[2023-10-13] MEDS: ZETIA 10 MG PO (09:09)
[2023-10-13] MEDS: COZAAR 50 MG PO (09:09)
[2023-10-13] MEDS: VITAMIN B-12 1000 MCG PO (09:09)
[2023-10-13] MEDS: STERILE WATER FOR INJECTION 10 ML IV (09:09)
[2023-10-13] MEDS: ORETIC 12.5 MG PO (09:09)
[2023-10-13] MEDS: ULORIC 40 MG PO (09:09)
[2023-10-13] MEDS: ASPIR LOW (ENTERIC COATED) 81 MG PO (09:09)
[2023-10-13] MEDS: ROCEPHIN 1000 MG IV (09:09)
--- NOTE | 2023-10-13 10:03 | CM ---
Patient seen at bedside with daughter also present. Patient states he lives at [facility] with his . Patient stated that he is driving and lives in independent living apartment. Patient stated that he has a Cpap at home and that his PCP is
Gabriela. Patient uses the [facility]. Patient stated that he does not anticpate needing any VN at discharge.
CM will continue to follow for discharge planning needs.
Plan; home with no needs anticipated
[2023-10-13] MEDS: ATIVAN 1 MG IV (10:56)
[2023-10-13] MEDS: NSS (PRESERVATIVE FREE) 0.5 ML IV (10:56)
[2023-10-13 12:50] VITALS: BP 132/81; BP 152/82; BP 160/90; PULSE 69; PULSE 72; PULSE 84
--- NOTE | 2023-10-13 13:34 | W.PN.HOSP.TC ---
Today's Communication/Plan
-
Watch another 24 hours for the effects of the Ativan to clear
Stop ceftriaxone
Possible discharge tomorrow
Vitamin B12 deficiency needs to be corrected-discussed with family
Outpatient follow-up with neuropsychiatry
Assessment / Plan
Assessment / Plan
A/P: Patient is a 77y M with PMH significant for A-Fib, HTN and LATANYA who presents to ED for evaluation of confusion / disorientation.
Echo 01/10/2023-small left ventricular size and LVH EF 75%. Thickened mitral leaflets, mitral annular calcification. Mild .
confused and silly answers to questions
CVS: S1-S2 normal
Chest: CTA B/L
Abdomen: Soft, NT / Bowel sounds present
Extremities: No edema, normal pulses
ELECTRIC SOLDERER: Non focal exam, no evidence of myelopathy, Confused.
#Confusion / Disorientation
- No evident etiology for his confusion - infection and acute TME seems most likely.
- states that patient only needs Ativan once every 2 weeks.
- Other possibilities include CVA (A-Fib not on OAC), med effect (doxycycline), etc.
- CT head in the ED with no focal abnormalities.
- Check MR brain in the AM.
-Possible that viral infection made him more confused. Suspect cognitive dysfunction at baseline
-Outpatient neuropsychiatric evaluation discussed
-Likely decompensation secondary to viral infection
-Patient is more confused now after the MRI because of Ativan hopefully will clear soon.
#Fever
- Temp in the ED to 100.5 after Tylenol.
- No focal symptoms and work-up thus far in the ED is unremarkable.
- Possibly viral
- Urine normal
- Received initial doses of Vanco / Zosyn.
- Reviewed PCN allergy with patient / - apparently has taken amoxicillin on multiple prior occasions with no issues.
- PCN 'allergy' was from childhood records - no adverse effects in his adult life.
- Stop ceftriaxone
- Doxycycline stopped yesterday
#Paroxysmal Atrial Fibrillation
- Stable. Patient on no medications for rate or rhythm control.
- Not on OAC for stroke risk reduction.
- Monitor on tele for any evidence of A-Fib.
- Stroke eval as noted above.
#Benign Hypertension
- Stable. Continue losartan 50 mg daily, hold hydrochlorothiazide 12.5 mg daily
# LATANYA on CPAP
- Stable. Continue usual CPAP.
# Hyperlipidemia-continue with statin, Zetia
# Cognitive Impairment
- Patient was noted at recent PCP visit to have mild degree of cognitive impairment.
- Current symptoms may reflect decompensation in this due to infection / acute illness.
# History of prostate cancer with history of radiation
# DVT Prophylaxis: SCDs
# Code Status: Full
D/W Rn
D/W Neuro
Anticipated Discharge: Within 24 hours
Subjective/Interval History
-
Date of Service: October 13, 2023
Objective Data
-
Labs:
Laboratory Results
10/13/23
04:55
WBC 7.2
Hgb 16.0
Hct 47.4
Plt Count 142
Sodium 140
Potassium 3.8
Chloride 105
Carbon Dioxide 26
BUN 15
Creatinine 1.1
Glucose 95
Calcium 9.4
Total Bilirubin 1.2
AST 27
ALT 29
Alkaline Phosphatase 60
Vital Signs:
Vital Signs
Temp Pulse Resp BP Pulse Ox
98.4 F 81 18 170/89 94
10/13/23 07:38 10/13/23 09:09 10/13/23 07:38 10/13/23 09:09 10/13/23 07:38
I&O
10/12/23 10/13/23 10/14/23
06:59 06:59 06:59
Intake Total 1440 / 1440 1340 / 1340
Output Total 400 / 400
Balance 1040 / 1040 1340 / 1340
[2023-10-13 13:46] LABS: HDL Cholesterol 38 mg/dl; LDL Cholesterol, Calculated 54 mg/dl; Total Cholesterol 124 mg/dl (50-199); Triglyceride 164 mg/dl (10-149); Very Low Density Lipoprotein 32 mg/dl (0-30)
[2023-10-13 14:04] LABS: Glycohemoglobin (HgbA1c) 5.5 % (4.0-5.6)
[2023-10-13 16:00] VITALS: BP 128/58
[2023-10-13] MEDS: NSS IV (16:29)
[2023-10-13] MEDS: LOVENOX 40 MG SC (17:37)
[2023-10-13 19:00] VITALS: BP 155/72
[2023-10-13 20:10] LABS: Hepatitis C Antibody Negative (Negative)
[2023-10-13] MEDS: MELATONIN 5 MG PO (21:01)
[2023-10-13 23:00] VITALS: BP 124/60
[2023-10-14 03:10] VITALS: BP 171/91
[2023-10-14 06:00] VITALS: BMI 33.9
[2023-10-14 07:29] VITALS: BP 145/78; BP 164/85; BP 169/87; PULSE 77; PULSE 79
[2023-10-14] MEDS: ZETIA 10 MG PO (07:43)
[2023-10-14] MEDS: ASPIR LOW (ENTERIC COATED) 81 MG PO (07:43)
[2023-10-14] MEDS: VITAMIN B-12 1000 MCG PO (07:44)
[2023-10-14] MEDS: ULORIC 40 MG PO (07:44)
[2023-10-14] MEDS: PRAVACHOL 20 MG PO (07:44)
[2023-10-14] MEDS: ORETIC 12.5 MG PO (07:46)
[2023-10-14] MEDS: COZAAR 50 MG PO (07:46)
--- NOTE | 2023-10-14 10:54 | PN.CDI ---
Addendum entered and electronically signed by Kenn Jones MD 10/14/23 17:25:
Documentation is complete at this time.
Original Note:
CDI
- -
CDI:
Physician Documentation Request
Admit Date: 10/12/23 04:49
Dear Doctor Robert,
Please review the following and provide your response in the progress notes.
Clinical Indicators:
The diagnosis of Cervical spinal cord compression was included in the signed MRI report.
10/12 MR Brain Without Contrast
#5. Moderate-sized disc herniation at C3/C4
#...causing moderate spinal cord compression and central canal stenosis.
Please indicate in the progress notes that the above diagnosis is valid for this patient:
Cervical spinal cord compression is a valid diagnosis, (please document)
Cervical spinal cord compression is not a valid diagnosis for this patient
Cervical spinal cord compression is not yet confirmed but remains a suspected condition
Other(please specify)
Use of terms such as suspected, likely, concern for, or probable are acceptable for a diagnosis that is being evaluated, monitored or treated as if it exists and can be coded in the inpatient setting, when documented at the time of discharge.
Thank you,
Jasmyne Ramirez RN BSN CCDS
CDI Specialist
please contact via tiger text
Please use your independent medical judgment in providing your response.
[2023-10-14 11:00] VITALS: BP 135/67
--- NOTE | 2023-10-14 11:26 | W.PN.HOSP.TC ---
Addendum entered and electronically signed by Kenn Jones MD 10/14/23 11:34:
Correction-continue hydrochlorothiazide and losartan
B12 injection given now. Patient will continue with B12 injections weekly as outpatient.
I have sent a TT message for primary physician regarding this.
Original Note:
Today's Communication/Plan
-
Discharge
Assessment / Plan
Assessment / Plan
A/P: Patient is a 77y M with PMH significant for A-Fib, HTN and LATANYA who presents to ED for evaluation of confusion / disorientation.
Echo 01/10/2023-small left ventricular size and LVH EF 75%. Thickened mitral leaflets, mitral annular calcification. Mild .
confused and silly answers to questions
CVS: S1-S2 normal
Chest: CTA B/L
Abdomen: Soft, NT / Bowel sounds present
Extremities: No edema, normal pulses
[facility] [employer] MICA: Non focal exam, AAO3
#Confusion / Disorientation
-Back to normal
- No evident etiology for his confusion - infection and acute TME seems most likely.
- states that patient only needs Ativan once every 2 weeks.
- Other possibilities include CVA (A-Fib not on OAC), med effect (doxycycline), etc.
- CT head in the ED with no focal abnormalities.
- Check MR brain in the AM.
-Possible that viral infection made him more confused. Suspect cognitive dysfunction at baseline
-Outpatient neuropsychiatric evaluation discussed
-Likely decompensation secondary to viral infection
-Patient is more confused now after the MRI because of Ativan cleared by dinner time last night per
#Fever
- Temp in the ED to 100.5 after Tylenol.
- No focal symptoms and work-up thus far in the ED is unremarkable.
- Possibly viral
- Urine normal
- Received initial doses of Vanco / Zosyn.
- Reviewed PCN allergy with patient / - apparently has taken amoxicillin on multiple prior occasions with no issues.
- PCN 'allergy' was from childhood records - no adverse effects in his adult life.
- Stopped ceftriaxone
- Doxycycline stopped yesterday
#Paroxysmal Atrial Fibrillation
- Stable. Patient on no medications for rate or rhythm control.
- Not on OAC for stroke risk reduction.
- Monitor on tele for any evidence of A-Fib.
- Stroke eval as noted above.
#Benign Hypertension
- Stable. Continue losartan 50 mg daily, hold hydrochlorothiazide 12.5 mg daily
# LATANYA on CPAP
- Stable. Continue usual CPAP.
# Hyperlipidemia-continue with statin, Zetia
# Cognitive Impairment
- Patient was noted at recent PCP visit to have mild degree of cognitive impairment.
- Current symptoms may reflect decompensation in this due to infection / acute illness.
# History of prostate cancer with history of radiation
# DVT Prophylaxis: SCDs
# Code Status: Full
D/W Rn
D/W at bed side
Follow up care discussed.
Discharge time 31 min
Anticipated Discharge: Today
Subjective/Interval History
-
Date of Service: October 14, 2023
Objective Data
-
Vital Signs:
Vital Signs
Temp Pulse Resp BP Pulse Ox
97.9 F 88 16 159/94 93
10/14/23 07:29 10/14/23 07:46 10/14/23 07:29 10/14/23 07:46 10/14/23 07:29
I&O
10/13/23 10/14/23 10/15/23
06:59 06:59 06:59
Intake Total 1340 / 1340 480 / 480
Balance 1340 / 1340 480 / 480
--- NOTE | 2023-10-14 11:33 | W.DS.TRANS ---
Addendum entered and electronically signed by Kenn Jones MD 10/14/23 16:46:
Dictation- [id number]
Original Note:
DC Summary - [employer]
-
Discharge Instructions:
Discharge Diagnosis/Procedures Confusion/disorientation, B12 deficiency,fever,
paroxysmal atrial fibrillation, hypertension,
sleep apnea, hyperlipidemia, cognitive
impairment, history of prostate cancer
Diet As tolerated
Activity As tolerated
Blood Work B12 levels 2 months
Instructions:
Stand-Alone Forms:
Changes to Home Medications: Yes
Discharge Medications:
DC Medications w/original date entered in trinket
aspirin 81 mg tablet,delayed release 81 mg PO QPM Blood Clot Prevention/Tx 03/23/12
Symbicort 1 puff inhalation R DAILY PRN sob 10/12/23
coenzyme Q10 200 mg capsule (Co Q-10) 200 mg PO DAILY Supplement 10/12/23
ezetimibe 10 mg tablet 10 mg PO QPM High Cholesterol 10/12/23
febuxostat 40 mg tablet 40 mg PO DAILY Gout 10/12/23
hydrochlorothiazide 12.5 mg tablet 12.5 mg PO DAILY Blood Pressure 10/12/23
losartan 50 mg tablet 50 mg PO DAILY Blood Pressure 10/12/23
omega-3 acid ethyl esters 1 gram capsule 2 g PO BID Supplement 10/12/23
pravastatin 40 mg tablet 20 mg PO QPM High Cholesterol 10/12/23
cyanocobalamin (vitamin B-12) 1,000 mcg/mL injection solution (Dodex) 1,000 mcg IM WEEKLY B 12 Def #10 mL 10/14/23
lorazepam 1 mg tablet 0.5 mg (1/2 x 1 mg) PO DAILY PRN anxiety #0 tabs 10/14/23
Home Medication Changes
Ativan reduced.
B12 new
Pending Results: No
[2023-10-14] MEDS: CYANOCOBALAMIN 1000 MCG IM (11:59)
== END 2023-10-14 12:53 | disposition home or self-care (01) | DRG 92 ==
LOC: 3 WEST ACU 04:49
PROVIDERS: Internal Medicine; ADMITTING PHYSICIAN Hospitalist; ATTENDING PHYSICIAN Hospitalist; CONSULT PHYSICIAN Psychiatry & Neurology Neurology; EMERGENCY PHYSICIAN Emergency Medicine; FAMILY PHYSICIAN Family Medicine
DX: G92.8 Other toxic encephalopathy (principal); M50.01 Cervical disc disorder with myelopathy, high cervical region; E78.1 Pure hyperglyceridemia; I12.9 Hypertensive chronic kidney disease with stage 1 through stage 4 chronic kidney disease, or unspecified chronic kidney disease; I48.0 Paroxysmal atrial fibrillation; N18.30 Chronic kidney disease, stage 3 unspecified; G47.33 Obstructive sleep apnea (adult) (pediatric); E66.9 Obesity, unspecified; B34.9 Viral infection, unspecified; M10.9 Gout, unspecified; L40.9 Psoriasis, unspecified; G31.84 Mild cognitive impairment of uncertain or unknown etiology; E53.8 Deficiency of other specified B group vitamins; E55.9 Vitamin D deficiency, unspecified; K76.0 Fatty (change of) liver, not elsewhere classified; N52.9 Male erectile dysfunction, unspecified; F41.9 Anxiety disorder, unspecified; M48.02 Spinal stenosis, cervical region; Z11.52 Encounter for screening for COVID-19; Z68.33 Body mass index [BMI] 33.0-33.9, adult; Z79.82 Long term (current) use of aspirin; Z79.899 Other long term (current) drug therapy; Z85.46 Personal history of malignant neoplasm of prostate; Z92.3 Personal history of irradiation
CPT/HCPCS: 70450; 70551; 71046; 80053; 80061; 81003; 82248; 82607; 82746; 83036; 83605; 83735; 84443; 85025; 86140; 86803; 87040; 87811; 96361; 96365; 96375; 97162; 97165; 99285

== ENCOUNTER → 2023-10-27 13:55 | Outpatient (REF) | payer MEDICARE, OTHER, SELFPAY | LOC: HWRCS 13:55 | PROVIDERS: ATTENDING PHYSICIAN Physician Assistant Medical; FAMILY PHYSICIAN Family Medicine | DX: R06.09 Other forms of dyspnea (principal); I35.0 Nonrheumatic aortic (valve) stenosis | CPT/HCPCS: 93306 ==

== ENCOUNTER → 2024-09-21 13:55 | Outpatient (REF) | payer MEDICARE, OTHER, SELFPAY | LOC: RAD 13:55 | PROVIDERS: ATTENDING PHYSICIAN Psychiatry & Neurology Neurology; FAMILY PHYSICIAN Family Medicine | DX: M54.16 Radiculopathy, lumbar region (principal) | CPT/HCPCS: 72114 ==